=== PATIENT | female | born 1975 | race Two or more races ===

== ENCOUNTER 2022-10-16 15:46 | Emergency (ER) | payer OTHER ==
[~2022-10-16] VITALS: Ht 160 cm; Wt 99.8 kg
[2022-10-16] MEDS ORDERED: IBUPROFEN 600 MG TABLET ONE (16:30)
[2022-10-16] MEDS ORDERED: IBUPROFEN 600 MG TABLET PO ONE (16:30)
[2022-10-16] MEDS ORDERED: TDAP [DIPH/PERTUSSIS/TET] 0.5 ML VIAL IM ONE ×2 (16:30)
--- NOTE | 2022-10-16 16:30 | NUR ---
dog bite on the right forearm and r hand. no tdap. Kept comfortable, will continue to monitor accordingly.
[2022-10-16] MEDS ORDERED: AZIT250T13 PO (17:31)
[2022-10-16] MEDS ORDERED: IBUP-1955 PO (17:31)
[2022-10-16 18:22] VITALS: BP 145/66
--- NOTE | 2022-10-16 18:23 | NUR ---
Patient discharged to home in stable condition. Written and verbal after care instructions given. Patient verbalizes understanding of instruction.
== END 2022-10-16 18:22 | disposition home or self-care (01) ==
LOC: ER 15:50
DX: S51.851A Open bite of right forearm, initial encounter (principal); I10 Essential (primary) hypertension; E03.9 Hypothyroidism, unspecified; Z79.899 Other long term (current) drug therapy; Z88.0 Allergy status to penicillin; Z88.1 Allergy status to other antibiotic agents; W54.0XXA Bitten by dog, initial encounter; Y93.89 Activity, other specified; Y92.89 Other specified places as the place of occurrence of the external cause; Y99.8 Other external cause status
CPT/HCPCS: 73090-TC; 73130-TC; 90715